=== PATIENT | male | born 1940 | race Caucasian/White ===

== ENCOUNTER 2019-12-18 07:24 | Emergency (ER) | payer OTHER, MEDICARE ==
[~2019-12-18] VITALS: Ht 172.7 cm; Wt 97.5 kg
[2019-12-18 07:25] VITALS: BP_SYST 161
[2019-12-18 07:53] VITALS: BP_SYST 132
== END 2019-12-18 07:48 | disposition home or self-care (01) ==
LOC: SED 07:24
DX: S01.01XA Laceration without foreign body of scalp, initial encounter (principal); I10 Essential (primary) hypertension; E11.9 Type 2 diabetes mellitus without complications; W01.10XA Fall on same level from slipping, tripping and stumbling with subsequent striking against unspecified object, initial encounter; Y93.89 Activity, other specified; Y92.89 Other specified places as the place of occurrence of the external cause; Y99.8 Other external cause status
CPT/HCPCS: 99282

== ENCOUNTER 2019-12-24 09:58 | Emergency (ER) | payer OTHER, MEDICARE ==
[~2019-12-24] VITALS: Ht 177.8 cm; Wt 83.9 kg
[2019-12-24 10:05] VITALS: BP_SYST 125
[2019-12-24 10:13] VITALS: BP_SYST 125
== END 2019-12-24 10:11 | disposition home or self-care (01) ==
LOC: SED 09:58
DX: S01.01XD Laceration without foreign body of scalp, subsequent encounter (principal); I10 Essential (primary) hypertension; E11.9 Type 2 diabetes mellitus without complications; E78.5 Hyperlipidemia, unspecified; Z91.018 Allergy to other foods; X58.XXXD Exposure to other specified factors, subsequent encounter
CPT/HCPCS: 99281

== ENCOUNTER 2020-09-05 10:49 | Emergency (ER) | payer OTHER, MEDICARE ==
[~2020-09-05] VITALS: Ht 172.7 cm; Wt 95.3 kg
[2020-09-05 10:50] VITALS: BP_SYST 179
[2020-09-05] MEDS ORDERED: ACETAMINOPHEN 325 MG TABLET PO ONE (11:30)
[2020-09-05] MEDS ORDERED: BACITRACIN 1 GM OINT TP ONE (11:30)
[2020-09-05] MEDS ORDERED: ceFAZolin SODIUM 1 GM VIAL IM ONE (11:30)
[2020-09-05] MEDS ORDERED: LIDOCAINE 1% 10 MG/ML, 20 ML MDV SUBCUT ONE (11:30)
[2020-09-05] MEDS ORDERED: DIPH-TET-PERTUS Vaccine 0.5 ML VIAL (ADACEL) I.M. ONE (11:30)
[2020-09-05] MEDS ORDERED: AMOX-426 PO (12:01)
[2020-09-05] MEDS ORDERED: ACET325T PO (12:01)
[2020-09-05 12:29] VITALS: BP_SYST 156
== END 2020-09-05 12:23 | disposition home or self-care (01) ==
LOC: SED 10:49
DX: S51.851A Open bite of right forearm, initial encounter (principal); I10 Essential (primary) hypertension; E78.5 Hyperlipidemia, unspecified; E11.9 Type 2 diabetes mellitus without complications; G47.30 Sleep apnea, unspecified; G62.9 Polyneuropathy, unspecified; Z91.018 Allergy to other foods; W54.0XXA Bitten by dog, initial encounter; Y93.89 Activity, other specified; Y92.89 Other specified places as the place of occurrence of the external cause; Y99.8 Other external cause status
CPT/HCPCS: 12001; 90471; 90715; 96372; 99284; J0690; J2001

== ENCOUNTER 2020-09-06 12:55 | Emergency (ER) | payer OTHER, MEDICARE ==
[~2020-09-06] VITALS: Ht 172.7 cm; Wt 95.3 kg
[2020-09-06 12:55] VITALS: BP_SYST 131
[~2020-09-06 12:55] MED LIST: ACET325T PO; AMOX-426 PO
[2020-09-06 13:27] VITALS: BP_SYST 131
== END 2020-09-06 13:30 | disposition home or self-care (01) ==
LOC: SED 12:55
DX: S51.051D Open bite, right elbow, subsequent encounter (principal); W54.0XXD Bitten by dog, subsequent encounter
CPT/HCPCS: 99281